=== PATIENT | female | born 1975 | race Caucasian/White ===

== ENCOUNTER 2017-08-27 09:44 | Emergency (ER) | payer SELFPAY ==
--- NOTE | 2017-08-27 09:50 | ER Report ---
History and Physical Time Seen By MD: 09:50 HPI/ROS CHIEF COMPLAINT: Right eye irritation HISTORY OF PRESENT ILLNESS: Patient is 42-year-old female who presents to the emergency department for evaluation of right eye irritation. Yesterday she was at her parents home and accidentally scratched her right eye with her fingernail. Patient had some pain initially but overnight the pain is become worse she is now having blepharospasm pain but denies any decreased vision. Patient does not wear corrective lenses or contacts. ROS: eye pain, redness Gen: no fever Allergies: Coded Allergies: Penicillins (Verified Allergy, Intermediate, 08/27/17) WELTS Home Meds No Active Prescriptions or Reported Meds Past Medical/Surgical History Noncontributory Constitutional Vital Sign - Last 24 Hours 08/27/17 09:49 Temp 97.6 Pulse 70 Resp 16 B/P (MAP) 114/90 Pulse Ox 96 O2 Delivery Room Air Physical Exam General Appearance: Alert, no distress. Eyes: Pupils equal and round no pallor. Pupils are equal. Right eye has moderate injection. There is no discharge. There is no foreign body. Fluorescein exam reveals uptake to the right cornea. Slit lamp exam: No cell or flare in the anterior chamber, no hyphema, corneal abrasion noted Skin: Periorbital skin is not inflamed. [ ] DIFFERENTIAL DIAGNOSIS: After history and physical exam differential diagnosis was considered for a red eye including but not limited to foreign body, conjunctivitis, iritis and corneal abrasion. Medical Decision Making ED Course/Re-evaluation ED Course 08/27/2017 10:08:49 am patient had fairly instantaneous relief after instillation of proparacaine eyedrops. Treatment will be topical ophthalmic antibiotics for the next 5 days along with pain medication. Decision to Disposition Date: Aug 27, 2017 Decision to Disposition Time: 10:09 Depart Departure Latest Vital Signs Vital Signs Date Time Temp Pulse Resp B/P (MAP) Pulse Ox O2 Delivery O2 Flow Rate FiO2 08/27/17 09:49 97.6 70 16 114/90 96 Room Air Impression: Primary Impression: Corneal abrasion Condition: Improved Disposition: HOME OR SELF-CARE New Scripts Oxycodone Hcl/Acetaminophen (PERCOCET 5-325 MG TABLET) 1 Each Tablet 1-2 EACH PO Q4-6H for PAIN, #20 TAB 0 Refills Prov: TEO CHONG MD 08/27/17 Patient Instructions: Corneal Abrasion (ED) Additional Instructions: Use the gentamicin eyedrops 1 drop to the right eye every 2 hours while awake for the next 5 days Problem Qualifiers Primary Impression: Corneal abrasion Encounter type: initial encounter Laterality: right Qualified Codes: S05.01XA - Injury of conjunctiva and corneal abrasion without foreign body, right eye, initial encounter TEO CHONG MD Aug 27, 2017 09:50
[2017-08-27] MEDS ORDERED: PROPARACAINE 0.5% OP 15ML BTL OD ONE (09:55)
[2017-08-27] MEDS ORDERED: FLUORESCEIN SOD 1 MG 1 EA STRP OD ONE (09:55)
[2017-08-27] MEDS ORDERED: GENTAMICIN 0.3% OD ONE (10:00)
[2017-08-27] MEDS ORDERED: OXYC-865 PO (10:10)
[2017-08-27 10:20] VITALS: BP 113/81
== END 2017-08-27 10:17 | disposition home or self-care (01) ==
LOC: ER 09:57
DX: S05.01XA Injury of conjunctiva and corneal abrasion without foreign body, right eye, initial encounter (principal)
CPT/HCPCS: 99283